=== PATIENT | female | born 1965 | race Caucasian/White ===

== ENCOUNTER → 2018-01-22 01:19 | Outpatient (CLI) | payer BC, SELFPAY ==
--- NOTE | 2018-01-22 12:45 | DI.REPORT_ITS ---
SYMPTOMS/DIAGNOSIS: SCREENING, [facility], Z00.00 MAMMOGRAMS: Mammograms were interpreted according to the usual protocol including computer analysis with CAD system, tomosynthesis and C view imaging. Comparison is with prior mammograms. No masses or microcalcifications are seen. There is nothing to suggest malignancy. IMPRESSION: Negative mammogram. Routine screening is recommended. Category 1, breast density D. SA ASSESSMENT OF FINDINGS: Negative. Category 1. Patient will receive a letter notifying them of these results. BI-RADS category D. The breasts are extremely dense, which lowers the sensitivity of mammography.
== END ==
PROVIDERS: PCP Nurse Practitioner; Visit Provider Nurse Practitioner
DX: Z00.00 Encounter for general adult medical examination without abnormal findings (principal); Z12.31 Encounter for screening mammogram for malignant neoplasm of breast
CPT/HCPCS: 77063; 77067

== ENCOUNTER 2018-02-04 10:06 | Emergency (ER) | payer BC, SELFPAY ==
[2018-02-04 10:11] VITALS: BP 120/69; PULSE 74; RESP 15; TEMP 37.2; O2SAT 100
--- NOTE | 2018-02-04 10:56 | ED.GENADUL_ITS ---
Disposition Clinical Impression: Facial cellulitis Condition: Stable Instructions: Cellulitis (ED) Additional Instructions: Watch her symptoms closely and return immediately if there are any significant worsening or spread of your symptoms, high fever or chills. If not improving in 24-48 hours you may begin taking the Bactrim and if you show any signs of lack of improvement after 72 hours please return immediately to the emergency department or be seen by her primary care provider. For pain and discomfort you may take Tylenol or Motrin as needed. Prescriptions: Cephalexin [Keflex] 500 mg PO Q6H #20 cap Sulfameth/Trimeth Ds [Bactrim Ds Tablet] 1 each PO BID #10 tab Referrals: Lilian Hope [Primary Care Provider] - 3 days (If not improving please follow- up with primary care provider.) Medical Decision Making - Medical Decision Making Patient presenting to the emergency department for increased swelling and redness to the tip of her nose now spreading to her left cheek. She states that she normally gets small abrasions to the under her nose and has been using Neosporin for this but has continued to worsen her symptoms. Physical exam shows erythema and swelling to the tip of the nose with some spreading to the left cheek that is also warm to touch. Patient has no orbital involvement, no vesicular lesions, no ocular involvement. Patient does have slight cracking and opening of the skin inside the nare with surrounding redness which I feel is the initial area of penetration for what I feel is facial cellulitis that started at the tip of the nose and is now spreading. Patient is afebrile and otherwise well in appearance with no respiratory distress. Patient placed upon Keflex 4 times daily 5 days but also given a prescription for Bactrim to start in 48 hours if not improving. Patient to follow-up with primary care provider if not improving in 72 hours or return immediately to the emergency department For any significant worsening of symptoms. After discussion of diagnosis and plan of care with patient patient agreed and stated no further needs, questions , or concerns at this time. History of Present Illness - General Chief complaint: Cellulitis Stated complaint: UNKNOWN Time Seen by Provider: 02/04/18 10:09 Source: patient, RN notes reviewed Mode of arrival: ambulatory Limitations: no limitations - History of Present Illness Initial comments: Patient reports 3 days ago she noticed some irritation to her tip of her nose. She states that she normally gets cracking to this area of her nose occasionally and puts Neosporin on it. Over the past 3 days though she has noticed worsening redness increased swelling to her nose and now to her left cheek. Patient has also noted some jaw pain associated with this. Patient denies any vesicles, drainage, other areas of rash. Onset/Timin -: days(s) Location: face Severity scale (1-10): 6 Quality: aching Consistency: constant Improves with: none Worsens with: none Associated Symptoms: denies other symptoms Treatments Prior to Arrival: none - Related Data Naproxen 500 mg PO PRN tab-cap 01/05/16 Budesonide/Formoterol Fumarate [Symbicort 160/4.5 Mcg Inhaler] 1 puff IH BID inhaler NS 01/23/18 Estradiol [Vagifem] 10 mcg VG tab NS 01/23/18 Ibuprofen [Advil] 200 mg PO PRN NS 01/23/18 Omeprazole 20 mg PO DAILY tab-cap NS 01/23/18 Cephalexin [Keflex] 500 mg PO Q6H #20 cap 02/04/18 Sulfameth/Trimeth Ds [Bactrim Ds Tablet] 1 each PO BID #10 tab 02/04/18 Allergies Allergy/AdvReac Type Severity Reaction Status Date / Time No Known Allergies Allergy Unverified 02/04/18 10:16 Review of Systems Constitutional: malaise. denies: chills, fever Eyes: denies: eye discharge, vision change ENT: as per HPI. denies: ear pain, throat pain Respiratory: denies: cough, shortness of breath Cardiovascular: denies: chest pain Skin: as per HPI Comment: All other systems reviewed and negative Past Medical History - Past Medical History Medical history: GERD IBS Surgical history: other (Tonsillectomy, knee arthroscopy, hernia repair) - Social History Smoking status: never smoker Alcohol use: rarely Drug use: none Living Situation: lives with family General Exam - General Limitations: no limitations General appearance: alert, in no apparent distress - Eye Eye exam: Present: normal apperance, PERRL, EOMI. Absent: scleral icterus, conjunctival injection, nystagmus Pupils: Present: normal accommodation - ENT ENT exam: Present: normal orophraynx, mucous membranes moist, TM's normal bilaterally, normal external ear exam, other (Patient has erythema to the tip of the nose with significant swelling and some mild erythema spreading to the left cheek. There is no orbital involvement.) - Neck Neck exam: Present: tenderness (To palpation of lymph node), full ROM, lymphadenopathy (Moderate anterior cervical lymphadenopathy is noted ). Absent : meningismus - Respiratory Respiratory exam: Absent: respiratory distress, wheezes, stridor - Neurological Exam Neurological exam: Present: alert, oriented X3, CN II-XII intact, normal gait. Absent: altered - Skin Skin exam: Present: warm, dry Course Vital Signs - 24 hr 02/04/18 10:11 Temperature 37.2 C Pulse 74 Respiratory 15 Rate Blood Pressure 120/69 Pulse Oximetry 100
[2018-02-04] MEDS: Cephalexin 500 MG CAP PO (11:03)
[2018-02-04 11:15] VITALS: BP 120/58; PULSE 76; RESP 14; TEMP 37.4; O2SAT 100
== END 2018-02-04 11:16 ==
PROVIDERS: Emergency Provider Emergency Medicine; PCP Nurse Practitioner
DX: L03.211 Cellulitis of face (principal)
CPT/HCPCS: 99283

== ENCOUNTER 2018-08-13 12:09 | Day surgery (SDC) | payer BC, SELFPAY ==
--- NOTE | 2018-08-13 06:47 | W.COLOREPORT ---
Date of service: 08/13/18 Time of Service: 13:26 Colonoscopy Report Date of procedure: 08/13/18 Pre-op diagnosis general: Family history and screening Post-op diagnosis procedure note: other (Family history, colon polyp) Procedure: Colonoscopy with polypectomy by forceps Surgeon: Becca Angelo Anesthesia proc note operative: other (general/ Cleveland Burris, ADMINISTRATIVE SPECIALIST/ ASA 2) Estimated blood loss (mL): 3 Pathology: other (Transverse polyp) Complications: None Disposition: same day Indications: Mrs. Hector is a pleasant 53 year old female seen in the office for a colonoscopy. The patient has a family history of colon cancer. Her last colonoscopy was in 2012 and was normal. Risks, benefits and complications have been reviewed. Complications include but are not limited to bleeding, pain, perforation, missed small lesion/polyp, sore throat, aspiration and adverse reaction to the medications. Questions were entertained and answered to their satisfaction and they wished to proceed. No guarantees were given or implied. Prep: Miralax/Dulcolax Procedure Start Time: :26 Procedure End Time: 13:48 Retraction Time: 7 minutes Findings: One sessile polyp noted in the transverse colon Procedure Description: After informed consent was obtained the patient was taken to the procedure room and placed in a left decubitous position. Monitors were applied and a time out was done. The patients name, date of , procedure, allergies to medications and metal in their body was reviewed. The patient was then sedated. Once sedated and comfortable a rectal exam was done. External exam was normal. Internal exam revealed a normal sphincter tone and no palpable masses. The scope was then introduced and retro-flexed. Small internal hemorrhoids were identified. The scope was then advanced to the cecum with some difficulty due to a tortuous colon (corkscrew in some areas). The TI and appendiceal orifice were identified. The prep was adequate. The scope was then slowly retracted over 7 minutes back into the rectum. Polyps were removed in the transverse colon. The scope was removed and the patient was woken up and taken back to Same day surgery in stable condition. The patient tolerated the procedure well and there were no immediate complications. Follow up: The patient should follow up in 3-5 years unless they develop changes in bowel habits or other new gastrointestinal complaints.
--- NOTE | 2018-08-13 06:48 | W.PM.DSUDISC ---
Discharge Plan Disposition Patient Disposition: HOME Condition: Good Discharge Details Reason For Visit: Colon Cancer screening/ Family history Attending Provider: Becca Angelo Primary Care Provider: Lilian Hope Home Meds and New Rx's Prescriptions: Continued naproxen 500 MG tablet 500 mg PO PRN RF: 0 ibuprofen [Advil Liqui-Gel] 200 MG capsule 200 mg PO PRN RF: 0 Symbicort 10.2 GM HFA aerosol inhaler 1 puff Inhalation BID RF: 0 estradiol [Vagifem] 10 MCG tablet 10 mcg VG RF: 0 Discontinued polyethylene glycol 3350 17 gram/dose powder 238 gm PO ONCE Qty: 238 RF: 0 bisacodyl [Dulcolax (bisacodyl)] 5 mg tablet,delayed release (DR/EC) 5 mg PO ONCE Qty: 4 RF: 0 Discharge Instructions Instructions: Colonoscopy (DC), Colorectal Polyps (DC), Hemorrhoids (DC) Additional Instructions: Findings: small internal hemorrhoids one polyp Follow up: 3-5 years Please call if you develop: fevers >101.5 Nausea or Vomiting Abdominal pain that is not transient DAY SURGERY UNIT POST COLONOSCOPY INSTRUCTIONS 1. Because there will be medication in your system for the next 24 hours, you may feel a little sleepy. Your coordination will be affected. Therefore: a. Do not drive or operate dangerous equipment for 24 hours. b. Do not drink alcohol beverages for 24 hours (not even beer). c. Plan to go home and rest for the day. 2. Generally there are no restrictions on your activity after a day or so has gone by, but you may feel a bit fatigued for a few days. 3 After you arrive home you may have a light meal and return to a normal diet as you can tolerate it without feeling sick to your stomach. 4. After surgery, you may feel pain or discomfort. This should be only transient, but if it persists please contact your doctor. 5. If there are any questions regarding the findings of your procedure, please feel free to contact your doctor. 6. If you are unable to contact your doctor with a problem, contact the hospital at [phone]. 7. Continue all your regular medications unless directed otherwise. I understand the above instructions and have no questions. Signature of Patient or Responsible Adult Escort Date/Time Name of Responsible Adult Escort Signature of Nurse Date/Time Activity:: Activity as Tolerated Diet:: As Tolerated Discharge Orders Discharge Orders: Discharge Order (Routine); Ordered 08/13/18 Ordered By: Becca Angelo DS: Diagnosis Discharge Diagnosis (1) Family history of colon cancer: Status: Acute (2) S/P colonoscopy: Status: Acute (3) Colorectal polyp detected on colonoscopy: Status: Acute
[2018-08-13 12:30] VITALS: BP 119/73; PULSE 66; RESP 16; TEMP 36.6; O2SAT 100
[2018-08-13] MEDS: Lactated Ringers 1,000 ML 80 ML IV (13:07)
--- NOTE | 2018-08-13 13:41 | BOWEL_PTH ---
PATIENT: Zakia Waters LOC: [facility] U#:[id number] AGE/SX: 53/F ROOM: RE08/13/[address]: Becca Angelo MD : 1965 BED: DIS: 08/13/2018 SPEC #: [id number] RECD: 08/13/18 17:39 STATUS: KIA RE #: [id number] JONA: 08/13/18 13:[address]: Becca Angelo DEPT: Surgical Specimen RECD BY: Joanna Asher ENTERED: 08/13/18 17:39 SP TYPE: Bowel OTHR DR: Lilian Hope Tissues: 1 - BIOPSY BOWEL Procedures: GROSS AND MICRO LEVEL 4 Comments: [id number]
[2018-08-13 14:22] VITALS: BP 109/52; PULSE 54; RESP 16; TEMP 35.8; O2SAT 98
== END 2018-08-13 14:50 | disposition home or self-care (01) ==
LOC: SUR 12:09
PROVIDERS: PCP Nurse Practitioner; Visit Provider Surgery
PROC: 0DJD8ZZ Inspection of Lower Intestinal Tract, Via Natural or Artificial Opening Endoscopic (ICD-10-PCS; CPT 45378; principal; 2018-08-13 13:15)
DX: Z12.11 Encounter for screening for malignant neoplasm of colon (principal); D12.3 Benign neoplasm of transverse colon; K64.0 First degree hemorrhoids; Z80.0 Family history of malignant neoplasm of digestive organs; K21.9 Gastro-esophageal reflux disease without esophagitis
CPT/HCPCS: 45380; 81025; 88305

== ENCOUNTER 2018-08-20 17:35 | Outpatient (REF) | payer BC, SELFPAY ==
--- NOTE | 2018-08-20 16:45 | PAPFT_PTH ---
PATIENT: Zakia Waters LOC: [facility]#:[id number] AGE/SX: 53/F ROOM: RE08/20/[address]: Lilian Hope : 1965 BED: DIS: 08/20/2018 SPEC #: [id number] RECD: 08/20/18 18:14 STATUS: KIA BRAUN #: [id number] JONA: 08/20/18 16:[address]: Lilian Hope DEPT: [facility] Cytology RECD BY: Joanna Asher Tissues: 1 - CX/ENDOCX FOR PAP SMEARS Procedures: PAP THIN PREP/UVM Screening HPV DNA PROBE Comments: [id number]
== END 2018-08-20 17:55 ==
LOC: NCHCN 17:35
PROVIDERS: PCP Nurse Practitioner; Visit Provider Nurse Practitioner
DX: Z00.00 Encounter for general adult medical examination without abnormal findings (principal); Z12.4 Encounter for screening for malignant neoplasm of cervix; Z11.51 Encounter for screening for human papillomavirus (HPV)
CPT/HCPCS: 88142; 87624

== ENCOUNTER 2019-02-19 08:38 | Outpatient (REF) | payer OTHER, SELFPAY ==
[2019-02-19 13:33] LABS: Calculated LDL 118 mg/dL; Cholesterol 236 mg/dL (50-200); HDL Cholesterol 108 mg/dL (40-60); Triglyceride 53 mg/dL (30-150)
== END 2019-02-19 08:58 ==
LOC: NCHCN 08:38
PROVIDERS: PCP Nurse Practitioner; Visit Provider Nurse Practitioner
DX: Z13.220 Encounter for screening for lipoid disorders (principal)
CPT/HCPCS: 80061

== ENCOUNTER 2019-06-27 08:53 | Outpatient (CLI) | payer OTHER, SELFPAY ==
[2019-06-27 09:22] LABS: HCT 40.9 % (36.0-46.0); HGB 13.8 g/dL (12.0-15.5); Mean Corp. HGB Concentration 33.7 g/dL (32.0-36.0); Mean Corpuscular Hemoglobin 31.2 pg (27.0-33.0); Mean Corpuscular Volume 92.5 fL (80-95); Mean Platelet Volume 10.2 fL (8.0-11.0); Platelet Count 281 x1000/uL (130-400); RBC 4.42 m/cumm (4.00-5.20); RBC Distribution Width 11.7 % (11.7-14.6); White Blood Cell Count 5.07 k/cumm (4.4-10.8)
[2019-06-27 11:03] LABS: TSH 2.16 uIU/mL (0.36-3.74); Vitamin B12 637 pg/mL (193-986)
[2019-06-27 22:19] LABS: Vitamin D 25 Total 35.2 ng/ml (30-100)
== END 2019-06-27 09:13 ==
PROVIDERS: PCP Nurse Practitioner; Visit Provider Nurse Practitioner
DX: R53.83 Other fatigue (principal); E55.9 Vitamin D deficiency, unspecified
CPT/HCPCS: 36415; 82306; 85027; 82607; 84443

== ENCOUNTER 2020-03-03 00:35 | Outpatient (CLI) | payer BC, SELFPAY ==
--- NOTE | 2020-03-03 16:23 | DI.MAMMO_ITS ---
EXAM: MG MAMMO SCREENING CLINICAL HISTORY: SCREENING,Z12.39 TECHNIQUE: Mammograms were interpreted according to the usual protocol including computer analysis w rubberit CAD system, tomosynthesis and C-view imaging. COMPARISON: FINDINGS: The breasts are of heterogeneous increased radiodensity. No dominant mass or clumped microcalcificat ion is identified in either breast. There are numerous punctate scattered microcalcifications of bot h breasts. Comparison with previous examinations including January 2018 show no gross interval change in appearance in comparison with the previous studies. IMPRESSION: No specific evidence of malignancy at this time. Routine screening examinations are suggested yearly intervals in this age group according to the ACS ACR guidelines. BI-RADS Category 1 - Negative Breast Density - Category C - Heterogeneously dense
== END 2020-03-03 00:55 ==
PROVIDERS: PCP Nurse Practitioner; Visit Provider Nurse Practitioner
DX: Z12.31 Encounter for screening mammogram for malignant neoplasm of breast (principal); R92.2 Inconclusive mammogram
CPT/HCPCS: 77063; 77067

== ENCOUNTER 2021-09-16 02:16 | Outpatient (CLI) | payer BC, SELFPAY ==
--- NOTE | 2021-09-16 | DI.MAMMO_ITS ---
Exam(s) MAMMO SCREENING EXAM: MAMMO SCREENING CLINICAL HISTORY: SCREENING FOR BREAST CANCER Z12.39 TECHNIQUE: Mammograms were interpreted according to the usual protocol including computer analysis w bitFlyer CAD system, tomosynthesis and C-view imaging. COMPARISON: 2012 through 2019 FINDINGS: The breasts are composed of heterogeneously dense fibroglandular densities, Breast Density category C . No suspicious masses or suspicious microcalcifications are seen. Stable benign calcifications, great er in the right breast. No skin thickening or abnormal axillary lymph nodes are seen. There has been no significant change from prior exams. IMPRESSION: BI-RADS Cat 2 - Benign Findings Yearly screening mammography is recommended. Breast Density Category C, heterogeneously Dense. The mammogram demonstrates the patient's breast tissue is dense. Dense breast tissue is very common a nd is not abnormal but dense breast tissue can make it harder to find cancer on a mammogram. Also, de nse breast tissue may increase breast cancer risk. This information about the result of the mammogram report was provided to the patient to raise their awareness. Use this report when you speak with the patient about their risks for breast cancer, which includes their family history. At that time, you may recommend additional screening tests (Ultrasound or MRI) as they might be useful based on their r isk. A negative radiographic report should not delay biopsy if a dominant or clinically suspicious mass is present. Up to ten percent of cancers are not identified on mammography. A negative report may reinforce clinical impression. Adenosis and dense breasts may obscure an underlying neoplasm. False positive reports average 6 to 10%.
== END 2021-09-16 02:36 ==
PROVIDERS: PCP Nurse Practitioner; Visit Provider Nurse Practitioner
DX: Z12.31 Encounter for screening mammogram for malignant neoplasm of breast (principal); R92.8 Other abnormal and inconclusive findings on diagnostic imaging of breast
CPT/HCPCS: 77063; 77067

== ENCOUNTER 2022-09-09 08:28 | Day surgery (SDC) | payer BC, SELFPAY ==
[2022-09-09 08:55] VITALS: BP 114/75; PULSE 82; RESP 16; TEMP 36.6; O2SAT 98
[2022-09-09] MEDS: Lactated Ringers 1,000 ML 80 ML IV (08:55)
--- NOTE | 2022-09-09 09:00 | W.ANESPRE ---
General Info Date of Service Date Performed: 09/09/22 Height: 5 ft 8 in Weight: 72.4 kg Body Mass Index (BMI): 24.3 Surgical Procedure: Operation Date: 09/09/22 10:05 Proposed Procedure Side Surgeon scottie Shepard, DO Meds Allergies and Home Medications Allergies Allergy/AdvReac Type Severity Reaction Status Date / Time wheat Allergy Mild Verified 09/09/22 08:50 Home Medication Medication Instructions Recorded Advil Liqui-Gel 200 mg capsule 200 mg PO PRN 01/23/18 (ibuprofen) Symbicort 160 mcg-4.5 1 puff inhalation BID 01/23/18 mcg/actuation HFA aerosol inhaler (budesonide-formoterol) Vagifem 10 mcg vaginal tablet 10 mcg vaginal DIRECTED 01/23/18 (estradiol) albuterol sulfate 90 mcg/actuation 2 puff inhalation Q6H PRN 04/04/22 aerosol inhaler (ProAir HFA) doxepin 10 mg capsule 10 mg PO QHS 04/04/22 bisacodyl 5 mg tablet,delayed 5 mg PO ONCE #4 tabs 08/30/22 release (Dulcolax (bisacodyl)) polyethylene glycol 3350 17 17 g PO ONCE #238 grams 08/30/22 gram/dose oral powder Current Visit Medications: Current Medications Generic Name Dose Route Start Last Admin Trade Name Freq PRN Reason Stop Dose Admin Hyoscyamine Sulfate 0.125 mg 09/09/22 07:37 Hyoscyamine 0.125 Mg Sl/Oral/Chew SL DIRECTED PRN Ringer's Solution 1,000 mls @ 80 mls/hr 09/09/22 06:00 IV 09/16/22 23:59 [facility] IV Miscellaneous Supplies 1 each 09/09/22 06:00 Iv Access IV 09/16/22 23:59 DIRECTED [facility] Ondansetron HCl 4 mg 09/09/22 07:37 Ondansetron 4 Mg/2 Ml Vial IVP Q4H PRN PRN Nausea / Vomiting Sodium Chloride 0 ml 09/09/22 06:00 Normal Saline Flush 10 Ml Syr IV 09/16/22 23:59 PRN PRN Sodium Chloride 0 ml 09/09/22 06:00 Normal Saline 10 Ml Vial IJ 09/16/22 23:59 DIRECTED PRN Sterile Water 0 ml 09/09/22 06:00 Water,Injection,Sterile 10 Ml Vial IJ 09/16/22 23:59 DIRECTED PRN PFSH Active Problems Active Problems: Problem Status Onset Code Family history of colon cancer Z80.0 Colorectal polyp detected on colonoscopy ~08/13/18 K63.5 Vaginal atrophy N95.2 Pilar cyst L72.11 GERD (gastroesophageal reflux disease) K21.9 Knee joint pain M25.569 BALTA (obstructive sleep apnea) G47.33 Sessile colonic polyp K63.5 Screening for colon cancer Z12.11 Medical History Medical History Asthma Asthma, mild intermittent Cervical disc herniation Depression Generalized headaches Insomnia Low back pain Ulcerative colitis Surgical History Surgical History (Updated 09/09/22 @ 08:53 by Johana Morgan) Colonoscopy - IV Sedation (07/21/02) Colonoscopy - MAC (09/20/00) Hx of knee surgery ganglion cyst on R devi Hx of tooth extraction S/P colonoscopy (~08/13/18) Tobacco Smoking/Tobacco Use Status: Never Alcohol Alcohol Intake: current Alcohol intake frequency: a few times a month Alcohol type: wine and hard liquor Substance Use Substance use: Never Substance use type: does not use Details: alcohol: t-4, one drink Vital Signs and Lab Results Vital Signs Most Recent Vital Signs in EMR: Most Recent Vital Signs Temp Pulse Resp BP Pulse Ox 36.6 C 82 16 114/75 98 09/09/22 08:55 09/09/22 08:55 09/09/22 08:55 09/09/22 08:55 09/09/22 08:55 Lab Results Blood Type / Crossmatch: No Data to Display Complete Blood Count: No Data to Display Complete Metabolic Panel: No Data to Display Liver Function Panel: No Data to Display Coagulation Panel: No Data to Display Cardiac Panel: No Data to Display Arterial Blood Gas: No Data to Display Venous Blood Gas: No Data to Display Pancreas Panel: No Data to Display Thyroid Panel: No Data to Display Infectious Disease: No Data to Display Blood Cultures: No Data to Display Toxicology Panel: No Data to Display Anesthesia Assessment and Plan Anesthesia History Personal History: No History of Anesthesia Complications Family History: No Family History of Anesthesia Complications Exercise Tolerance Exercise Tolerance: Metabolic Equivalents>4 Pertinent Negatives Pertinent Negatives: No Symptoms of GERD, No Major Cardiovascular Symptoms or Complaints, No Major Pulmonary Symptoms or Complaints and No History of CVA/TIA Cardiac & Pulmonary Exam Cardiac Exam: Normal S1/S2 Heart Sounds Pulmonary Exam: Clear Bilateral Breath Sounds Implantable Cardiac Device Does patient have a Pacemaker or an ICD?: No Airway Exam Known Difficult Airway: No Mallampati Class: 2 Mouth Opening: Normal (> 3cm) Thyromental Distance: Greater than 3 cm Neck Range of Motion: Full ROM Neck Circumference: Normal Teeth Condition: Normal Dentition ASA Classification ASA Score: ASA 2 Emergency Case?: No NPO Status NPO Status: NPO Clears >2 hours, Solids >8 hours Anesthesia Plan Resuscitation Status: Full Code Anesthesia Technique: General Anesthesia Airway Planned: Natural Airway Monitors Used: Standard Monitors
[2022-09-09 09:15] VITALS: BMI 24.3
[2022-09-09 09:43] VITALS: BP 99/65; PULSE 77; RESP 18; TEMP 36.3; O2SAT 97
--- NOTE | 2022-09-09 09:54 | W.PM.OP ---
Date of service: 09/09/22 Time of Service: 09:54 Operative Note Operative Note DATE OF PROCEDURE: 09/09/22 PRE-OP DIAGNOSIS: fmaily hx CRC/serrated polyps POST-OP DIAGNOSIS: same SURGEON: April Shepard ANESTHESIA TYPE: General:No Airway Refer to Anesthesia Record ESTIMATED BLOOD LOSS: 0 PATHOLOGY: none sent COMPLICATIONS: None Patient was transported to: same day Procedure Description: After informed consent was obtained the patient was taken to the procedure room and placed in a left decubitous position. Monitors were applied and a time out was done. The patients name, date of , procedure, allergies to medications and metal in their body was reviewed. The patient was then sedated. Once sedated and comfortable a rectal exam was done. External exam: Few external hemorrhoidal tags. Internal exam revealed a normal sphincter tone and no palpable masses. The scope was then introduced and retrofelexed. No internal hemorrhoids were identified. The scope was then advanced to the cecum without The prep was a BB PS 3 in all segments for total of 9 difficulty. The TI and appendiceal orifice were identified. The scope was then slowly retracted over 12 minutes back into the rectum. No polyps are identified today. There are no AVMs or diverticula apparent. The mucosa is pink and healthy with a normal vascular pattern.. The scope was removed and the patient was woken up and taken back to Same day surgery in stable condition. The patient tolerated the procedure well and there were no immediate complications. Follow up: The patient should follow up in 5 years unless they develop changes in bowel habits or other new gastrointestinal complaints.
--- NOTE | 2022-09-09 09:57 | PDOC.DSDIS_ITS ---
Date of service: 09/09/22 Time of Service: 09:57 Discharge Plan Disposition Patient Disposition: Home Condition: Good Discharge Details Reason For Visit: Colonoscopy Attending Provider: April Shepard Primary Care Provider: Maylin William Home Meds and New Rx's Prescriptions: Continued ibuprofen [Advil Liqui-Gel] 200 MG capsule 200 mg PO PRN budesonide-formoterol [Symbicort] 10.2 GM HFA aerosol inhaler 1 puff Inhalation BID estradiol [Vagifem] 10 MCG tablet 10 mcg VG DIRECTED Rx Instructions: insert into vagina 1-2 times per week. doxepin 10 mg capsule 10 mg PO QHS albuterol sulfate [ProAir HFA] 90 mcg/actuation HFA aerosol inhaler 2 puff inhalation Q6H PRN Discontinued bisacodyl [Dulcolax (bisacodyl)] 5 mg tablet,delayed release (DR/EC) 5 mg PO ONCE Qty: 4 0RF Rx Instructions: Take according to provider's instructions for colonoscopy prep. polyethylene glycol 3350 17 gram/dose powder 17 g PO ONCE Qty: 238 0RF Rx Instructions: To be taken as directed by prescriber's office for colonoscopy prep. Discharge Instructions Additional Instructions: [facility] Colonoscopy Post- Op Instructions Instructions for Everyone who is given Anesthesia: For your safety, please do the following for the next twenty-four (24) hours: *Do Not operate a motor vehicle (car, truck, motorcycle, etc.) *Do Not drink alcoholic beverages or use any recreational drugs for the first 24 hours or while taking pain medications. The medications in your body may have a reaction that can be dangerous. *Do Not make any important decisions or sign any important papers. Findings: normal Follow up: repeat in 5 yrs time 1. No lifting over 20 pounds or strenuous activity for the first 24 hours after your procedure. After 24 hours there are no restrictions on your activity but you may feel fatigued for a few days. 2. After you arrive home you may have a light meal and return to your normal diet as you can tolerate it without feeling sick to your stomach. 3. You may have a bloated, gaseous feeling in your belly (abdomen) after a colonoscopy. Passing gas and belching will help. Walking or lying down on your left side with your knees flexed may relieve the discomfort. Call the office at [phone] (Office) or [phone] (Hospital) right away if you notice any of the following: a.Vomiting of blood or ?coffee ground stools?. b.Rectal bleeding 1Tbsp, blood clots or continuous bleeding. c.Severe belly (abdominal) pain. d.A hard distended belly (abdomen) and an inability to pass gas. 4. Please don?t expect to have a normal BM (bowel movement) for 2-3 days after your procedure. 5. If there are questions regarding the findings of your procedure, please contact your doctor 6. If you are unable to contact your doctor with a problem, contact the hospital at [phone]. 7. Continue all your regular medications unless directed otherwise. I understand the above instructions and have no questions. Signature of Patient or Adult Escort Name of Responsible Adult Escort Signature of Nurse Date/Time Activity:: See above Diet:: See above Discharge Orders Discharge Orders: Discharge Order (Routine); Ordered 09/09/22 Ordered By: April Shepard
[2022-09-09 10:14] VITALS: BP 96/58; PULSE 63; RESP 16; TEMP 36; O2SAT 99
--- NOTE | 2022-09-09 10:52 | W.ANESPOSTOP ---
Postoperative Evaluation Date, Time and Location Date Performed: 09/09/22 Time Performed: 09:48 Patient Location: Day Surgery Unit Vital Signs Most Recent Imported Vital Signs: Most Recent Vital Signs Temp Pulse Resp BP Pulse Ox 36.0 C L 63 16 96/58 L 99 09/09/22 10:14 09/09/22 10:14 09/09/22 10:14 09/09/22 10:14 09/09/22 10:14 Pain Score Most Recent Pain Score: Most Recent Pain Score Pain Level 0 09/09/22 10:14 Assessment Mental Status: Awake (Alert & Oriented to Patient Baseline) Airway and Respiratory Function: Patent airway with normal (patient baseline) respiratory exam Cardiovascular Function: Hemodynamically Stable Hydration Status: Adequately Hydrated Nausea & Vomiting: No Nausea or Vomiting Pain: Pt. Denies Any Pain Peripheral Nerve Block: Patient did not receive a nerve block
== END 2022-09-09 10:46 | disposition home or self-care (01) ==
PROVIDERS: PCP Family Medicine; Visit Provider Surgery
PROC: 0DJD8ZZ Inspection of Lower Intestinal Tract, Via Natural or Artificial Opening Endoscopic (ICD-10-PCS; CPT 45378; principal; 2022-09-09 10:00)
DX: Z12.11 Encounter for screening for malignant neoplasm of colon (principal); Z80.0 Family history of malignant neoplasm of digestive organs; Z86.010 Personal history of colon polyps
CPT/HCPCS: 45378

== ENCOUNTER 2023-03-10 21:06 | Outpatient (REF) | payer BC, SELFPAY ==
[2023-03-10 18:31] LABS: Abs Immature Grans 0.02 10^3/uL (0.0-0.06); Absolute Basophil Count 0.05 10^3/uL (0.0-0.2); Absolute Lymphocyte Count 2.07 10^3/uL (1.2-3.4); Absolute Monocyte Count 0.56 10^3/uL (0.1-0.8); Absolute Neutrophil Count 4.42 10^3/uL (1.2-6.7); Basophils % 0.7; Eosinophils % 1.4; HCT 40.8 % (36.0-46.0); HGB 13.8 g/dL (11.2-15.7); Immature Grans % 0.3; Lymphocytes % 28.7; MCH 30.9 pg (27.0-33.0); MCHC 33.8 % (32.0-36.0); MCV 92 fL (80-95); MPV 10.2 fL (8.0-11.0); Monocytes % 7.8; Neutrophils % 61.1; Platelet Count 341 10^3/uL (130-400); RBC 4.46 10^6/uL (3.93-5.22); RDW 11.7 % (11.7-14.6); RDW-SD 39.3 fL; WBC 7.22 10^3/uL (4.4-10.8)
[2023-03-10 18:56] LABS: ALT 34 U/L (14-59); AST 25 U/L (15-37); Albumin 3.9 g/dL (3.4-5.0); Alkaline Phosphatase 97 U/L (46-116); Anion Gap 10.4 mmol/L (3-11); BUN 16 mg/dL (7-18); Bilirubin, Total 0.4 mg/dL (0.2-1.0); CO2 25.6 mmol/L (21.0-32.0); CREATININE 0.9 mg/dL (0.55-1.02); Calcium 9.5 mg/dL (8.5-10.1); Calculated LDL 131 mg/dL (<100); Chloride 103 mmol/L (98-107); Cholesterol 261 mg/dL (<200); Estimated GFR 74.57 (mL/min/1.73m2); Glucose 102 mg/dL (74-106); HDL Cholesterol 109 mg/dL (40-60); Potassium 4.1 mmol/L (3.5-5.1); Sodium 139 mmol/L (136-145); Total Protein 7.6 g/dL (6.4-8.2); Triglyceride 108 mg/dL (<150)
== END 2023-03-10 21:07 | disposition home or self-care (01) ==
LOC: NCHCN 21:06
PROVIDERS: PCP Family Medicine; Visit Provider Nurse Practitioner Family
DX: K21.9 Gastro-esophageal reflux disease without esophagitis (principal); Z13.220 Encounter for screening for lipoid disorders; R53.83 Other fatigue
CPT/HCPCS: 80053; 80061; 85025

== ENCOUNTER → 2023-04-14 00:23 | Outpatient (CLI) | payer BC, SELFPAY ==
--- NOTE | 2023-04-14 09:05 | DI.DEXA_ITS ---
Exam(s) XR DEXA BONE DENSITY W/WO HOLLIE EXAM: XR DEXA BONE DENSITY W/WO HOLLIE CLINICAL HISTORY: SCREENING FOR OSTEOPOROSIS IN POSTMENOPAUSAL WOMAN,Z78.0 TECHNIQUE: [employer] C densitometer analysis of left hip, lumbar spine and left forearm. Lat eral survey image of the thoracic and lumbar spine. COMPARISON: No exams were available for comparison FINDINGS: Lateral view of the thoracic and lumbar spine shows no evidence of compression fractures. Bone mineral density measurements of the lumbar spine correspond to a total T-score of 0, in the norm al range Bone mineral density measurements of the left hip correspond to a total T-score of -0.7 . The femora l neck T-score is -2.0, in the osteopenic range.. Theleft forearm bone mineral density measurements correspond to a T-score of the distal 3rd of -0.3, in the normal range.. IMPRESSION: Overall normal bone mineral density. Osteopenia in the femoral neck.
== END ==
PROVIDERS: PCP Family Medicine; Visit Provider Nurse Practitioner Family
DX: Z13.820 Encounter for screening for osteoporosis (principal); Z78.0 Asymptomatic menopausal state; M85.88 Other specified disorders of bone density and structure, other site
CPT/HCPCS: 77080

== ENCOUNTER 2023-05-29 09:27 | Outpatient (REF) | payer BC, SELFPAY ==
[2023-05-29 22:27] LABS: Rheumatoid Factor <8.6 IU/mL (<12.0)
[2023-05-30 13:50] LABS: ANA Interpretation Negative (Negative)
== END 2023-05-29 09:28 | disposition home or self-care (01) ==
LOC: NCHCN 09:27
PROVIDERS: PCP Family Medicine; Visit Provider Nurse Practitioner Family
DX: M25.69 Stiffness of other specified joint, not elsewhere classified (principal); M85.88 Other specified disorders of bone density and structure, other site
CPT/HCPCS: 86038; 86431

== ENCOUNTER 2023-07-19 11:31 | Outpatient (REF) | payer BC, SELFPAY ==
--- NOTE | 2023-07-19 11:30 | ENDOMET_PTH ---
PATIENT: Zakia Waters LOC: [facility] U#:[id number] AGE/SX: 58/F ROOM: RE07/19/[address]: Tiffanie Avery MD : [id number] BED: DIS: 07/19/2023 SPEC #: [id number] RECD: 07/19/23 17:07 STATUS: KIA REVikash #: [id number] JONA: 07/19/23 11:[address]: Tiffanie Avery DEPT: Surgical Specimen RECD BY: Joanna Asher ENTERED: 07/19/23 17:08 SP TYPE: Endomet OTHR DR: Maylin William Tissues: 1 - ENDOMETRIUM BX/ALHAJI Procedures: GROSS AND MICRO LEVEL 4 Comments: [id number]
== END 2023-07-19 11:32 | disposition home or self-care (01) ==
LOC: LBN 11:31
PROVIDERS: PCP Family Medicine; Visit Provider Obstetrics & Gynecology
DX: N95.0 Postmenopausal bleeding (principal)
CPT/HCPCS: 88305

== ENCOUNTER 2024-02-05 02:47 | Outpatient (CLI) | payer BC, SELFPAY ==
--- NOTE | 2024-02-05 | DI.MAMMO_ITS ---
Exam(s) MAMMO SCREENING EXAM: MAMMO SCREENING CLINICAL HISTORY: Z12.39 Screening TECHNIQUE: Mammograms were interpreted according to the usual protocol including computer analysis w [employer] CAD system, tomosynthesis and C-view imaging. COMPARISON: 2017 THROUGH 2021 FINDINGS: The breasts are composed of heterogeneously dense fibroglandular densities, Breast Density category C . No suspicious masses or suspicious microcalcifications are seen. No skin thickening or abnormal axillary lymph nodes are seen. There has been no significant change from prior exams. IMPRESSION: BI-RADS Category 1, Negative mammogram. Yearly screening mammography is recommended. Breast Density Category C, heterogeneously Dense. The mammogram demonstrates the patient's breast tissue is dense. Dense breast tissue is very common a nd is not abnormal but dense breast tissue can make it harder to find cancer on a mammogram. Also, de nse breast tissue may increase breast cancer risk. This information about the result of the mammogram report was provided to the patient to raise their awareness. Use this report when you speak with the patient about their risks for breast cancer, which includes their family history. At that time, you may recommend additional screening tests (Ultrasound or MRI) as they might be useful based on their r isk. A negative radiographic report should not delay biopsy if a dominant or clinically suspicious mass is present. Up to ten percent of cancers are not identified on mammography. A negative report may reinforce clinical impression. Adenosis and dense breasts may obscure an underlying neoplasm. False positive reports average 6 to 10%.
== END 2024-02-05 03:07 ==
LOC: DI 02:47
PROVIDERS: Visit Provider Nurse Practitioner Family
DX: Z12.31 Encounter for screening mammogram for malignant neoplasm of breast (principal)
CPT/HCPCS: 77063; 77067

== ENCOUNTER 2024-07-30 18:16 | Outpatient (REF) | payer BC, SELFPAY ==
[2024-07-30 23:05] LABS: COVID-19 PCR Negative (Negative); Influenza A PCR Positive (Negative); Influenza B PCR Negative (Negative); RSV PCR Negative (Negative)
[2024-07-30 23:07] LABS: Source Nasopharynx
== END 2024-07-30 18:17 | disposition home or self-care (01) ==
LOC: LBN 18:16
PROVIDERS: PCP Nurse Practitioner Family; Visit Provider Nurse Practitioner Family
DX: B34.9 Viral infection, unspecified (principal)
CPT/HCPCS: 87637

== ENCOUNTER 2025-02-27 15:19 | Outpatient (REF) | payer BC, SELFPAY ==
[2025-02-27 15:58] LABS: HCT 42.1 % (36.0-46.0); HGB 13.7 g/dL (11.2-15.7); MCH 30.9 pg (27.0-33.0); MCHC 32.5 % (32.0-36.0); MCV 95 fL (80-95); MPV 10.5 fL (8.0-11.0); Platelet Count 335 10^3/uL (130-400); RBC 4.44 10^6/uL (3.93-5.22); RDW 11.8 % (11.7-14.6); RDW-SD 41.1 fL; WBC 6.52 10^3/uL (4.4-10.8)
[2025-02-27 16:51] LABS: ALT 30 U/L (14-59); AST 21 U/L (15-37); Albumin 3.8 g/dL (3.4-5.0); Alkaline Phosphatase 75 U/L (46-116); Anion Gap 7.8 mmol/L (3-11); BUN 17 mg/dL (7-18); Bilirubin, Total 0.5 mg/dL (0.2-1.0); CO2 28.2 mmol/L (21.0-32.0); Calcium 9.4 mg/dL (8.5-10.1); Chloride 105 mmol/L (98-107); Estimated GFR 84.82 (mL/min/1.73m2); Glucose 97 mg/dL (74-106); Potassium 4.8 mmol/L (3.5-5.1); Sodium 141 mmol/L (136-145); Total Protein 6.9 g/dL (6.4-8.2)
[2025-02-27 17:46] LABS: Calculated LDL 99 mg/dL (<100); Cholesterol 218 mg/dL (<200); HDL Cholesterol 96 mg/dL (>or=50); Triglyceride 115 mg/dL (<150); Vitamin D 25 Total 36 ng/mL (30-100)
== END 2025-02-27 15:20 | disposition home or self-care (01) ==
LOC: NCHCN 15:19
PROVIDERS: PCP Nurse Practitioner Family
DX: Z00.00 Encounter for general adult medical examination without abnormal findings (principal)
CPT/HCPCS: 80053; 80061; 82306; 85027

== ENCOUNTER 2025-03-25 01:37 | Outpatient (CLI) | payer BC, SELFPAY ==
[2025-03-25] MEDS: Levalbuterol HFA 15 GM INH 4 PUFF IH (09:20)
[2025-03-25] MEDS: Inhaler, Assist Device 1 EACH MC (09:20)
--- NOTE | 2025-03-25 09:42 | W.PFT ---
Date of service: 03/25/25 Time of Service: 08:01 Pulmonary Function Test Result Indications: Asthma Impression 1. Good patient effort was noted. ATS standards for reproducibility were met. 2. Normal spirometry. 3. Following the administration of a bronchodilator there was a borderline response 4. TLC was normal. No evidence of restrictive lung disease 5. DLCO was normal indicating normal alveolar gas exchange
== END 2025-03-25 01:38 | disposition home or self-care (01) ==
PROVIDERS: PCP Nurse Practitioner Family; Visit Provider Internal Medicine Pulmonary Disease
DX: J45.909 Unspecified asthma, uncomplicated (principal)
CPT/HCPCS: 94060; 94726; 94729

== ENCOUNTER → 2025-04-18 03:36 | Outpatient (CLI) | payer BC, SELFPAY ==
--- NOTE | 2025-04-18 12:25 | DI.MAMMO_ITS ---
Exam(s) MAMMO SCREENING EXAM: MAMMO SCREENING CLINICAL HISTORY: SCREENING MAMMO Z12.31. TECHNIQUE: Bilateral full field digital CC and MLO mammographic images were obtained with 3D tomosynthesis and utilizing computer aided detection (CAD). COMPARISON: Prior mammograms were reviewed. FINDINGS: Glandular tissue pattern is again noted be moderately dense. Benign macrocalcification in the right breast again noted. There are no new spiculated masses nor malignant appearing microcalcification groups. There is no significant architectural distortion nor skin thickening-retraction. IMPRESSION: No radiographic evidence of malignancy. BI-RADS Category 2 - Benign Findings Breast Density - Category C - The breast are heterogeneously dense, which may obscure small masses. Breast density Category C or D implies that the patient has dense breast tissue. Dense breast tissue can make it harder to find cancer on a mammogram. Dense breast tissue is also associated with an increased risk of breast cancer. This information about the result of the mammogram report was provided to the patient to raise their awareness. Use this report when you speak with the patient about their risks for breast cancer, which includes their family history. At that time, you may recommend additional screening tests (Ultrasound or MRI) as these tests may add significant information. A negative radiographic report should not delay biopsy if a dominant or clinically suspicious mass is present. Up to ten percent of cancers are not identified on mammography. A negative report may reinforce clinical impression. Adenosis and dense breasts may obscure an underlying neoplasm. False positive reports average 6 to 10%. Patient will receive a letter notifying them of these results.
--- NOTE | 2025-04-18 13:29 | DI.DEXA_ITS ---
Exam(s) XR DEXA BONE DENSITY W/WO HOLLIE EXAM: XR DEXA BONE DENSITY W/WO HOLLIE CLINICAL HISTORY: PERS HX MUSCULOSKELETAL SYSTEM Z87.39 HX OSTEOPENIA TECHNIQUE: COMPARISON: CR XR DEXA BONE DENSITY W/WO HOLLIE from 04/14/2023 FINDINGS: Lateral Spine Image: Unremarkable. No compression deformities identified. Left hip: Total T-Score: -0.7. This is unchanged compared to the prior examination. Total Z-Score: 0.2 T- and Z-scores: There is no evidence of osteoporosis. Lumbar Spine: Total T-Score: 0.4. This compares to 0.0 on the prior examination. Total Z-Score: 1.8 T- and Z-scores: Within normal limits. IMPRESSION: No evidence of osteoporosis.
== END ==
DX: Z87.39 Personal history of other diseases of the musculoskeletal system and connective tissue (principal); Z13.820 Encounter for screening for osteoporosis; Z12.31 Encounter for screening mammogram for malignant neoplasm of breast
CPT/HCPCS: 77063; 77067; 77080